=== PATIENT | male | born 1995 | race African-American/Black ===

== ENCOUNTER 2019-03-18 22:59 | Emergency (ER) | payer MEDICAID ==
[~2019-03-18] VITALS: Ht 180.3 cm; Wt 68.0 kg
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
[2019-03-18 23:15] VITALS: BP 108/64
[2019-03-18] MEDS ORDERED: ROBAXIN-750750 MG PO (23:28)
[2019-03-18] MEDS ORDERED: NAPROXEN250 MG ORAL (23:28)
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
[2019-03-18 23:30] VITALS: BP 108/64
[2019-03-18] MEDS ORDERED: Ketorolac 60mg Inj IM ONE (23:30)
--- NOTE | 2019-03-18 23:30 | NUR ---
ER DISCHARGE NOTE: Patient is cleared to be discharged per ERMD, pt is aox4, on room air, with stable vital signs. pt was given dc and prescription instructions, pt was able to verbalize understanding, pt id band removed. pt is able to ambulate with steady gait. pt took all belongings.
== END 2019-03-18 23:35 | disposition home or self-care (01) ==
LOC: EMR 23:25
DX: M54.5 Low back pain (principal); G89.29 Other chronic pain
CPT/HCPCS: 96372; 99283